=== PATIENT | female | born 1935 | race Caucasian/White ===

== ENCOUNTER 2018-05-27 09:55 | Emergency (ER) | payer OTHER, MEDICARE ==
[2018-05-27 10:19] VITALS: TEMP 98.9; BMI 21.6
[2018-05-27] MEDS ORDERED: ASPIRIN 81 MG CHEWABLE TABLETS PO ONE (10:20)
[2018-05-27] MEDS ORDERED: ASPIRIN 81 MG CHEWABLE TABLETS ONE ×2 (10:21→10:31)
--- NOTE | 2018-05-27 10:36 | PDOC ---
History of Present Illness - History of Present Illness Initial Comments: Dedra Siddiqui is an 83yo woman with a PMH of HTN, HLD, COPD, CAD s/p SC s/p stent (2014) who presents with left upper chest, left neck and jaw, and left upper arm pain since yesterday. She reports that she started feeling left jaw pain that traveled down her neck yesterday evening. Initially, it felt like a toothache, but she does not have any teeth. She additionally felt some chest tightness similar to her COPD, and she used her regular medications though without significant relief. The jaw/ neck pain started to travel down to include the shoulder and upper left arm as well. Ms Siddiqui tried to go to bed, but she was unable to sleep secondary to discomfort. This morning, she again felt some chest tightness and assumed it was her COPD. She used her maintenance and rescue inhalers without improvement. She additionally had continued left jaw, neck shoulder and arm pain with the addition of pleutitic left chest pain, 8/10 in intensity, as well. She tried to go to work as normal, but she decided that the discomfort was too severe and stopped at the hospital instead. Ms Siddiqui denies any significant shortness of breath, diaphoresis, nausea, vomiting, lightheadedness, or other symptoms along with the discomfort. She did have an SC previously but states that she never had any symptoms at that time. The SC was noted because she was getting preop testing for an unrelated procedure, but she was taken to the [facility] and had a stent placed. She does not note any angina or chest pain at baseline, just the tightness that she associates with her COPD. <Heather Winkler - Last Filed: 05/27/18 13:13> <Xander Deluca - Last Filed: 05/27/18 14:08> - General Chief Complaint: Chest Pain Stated Complaint: LEFT NECK/ARM PAIN Time Seen by Provider: 05/27/18 10:05 Attending Attestation - Resident Resident Name: Heather Winkler - ED Attending Attestation I have performed the following: I have examined & evaluated the patient, The case was reviewed & discussed with the resident, I agree w/resident's findings & plan, Exceptions are as noted - HPI HPI: Patient brought in by wheelchair from Dr Ramsey office because of presenting there with left sided neck , jaw and chest pain. Patient stated she had the above symptoms in the last 24 hours , mainly since this a.m. Pain is increased by deep inspiration. Seen immediately from arrival, EKG done n 3 minutes from arrival showed RSR with lateral and inferior wall negative T waves. Orders placed in, called PCP and her pressroom worker, obtained EKG for comparison ( wn) 05/27/18 12:18 - Physicial Exam PE: Alert , oriented x 3 , mild to moderate discomfort Aspirin, oxygen, morphine sulfate given with improvement of symptoms. Discussed with Dr Rob, cadiology customer relations representative She will arrive here to see patient. Discussed about potentially transfering to [facility] for Cardiac Cath which she refused. Patient cardiologst at [facility] contacted Patient wanted to go to [facility]. Her MD told her that she has /could go to [facility]. 05/27/18 12:29 - Critical Care Time Total Critical Care Time: 30 Critical Care Statement: The care of this patient involved high complexity decision making to prevent further life threatening deterioration of the patient 's condition and/or to evaluate & treat vital organ system(s) failure or risk of failure. - Medical Decision Making Patient with new EKG changes, positive symptoms and positive Troponin , requires admission to a cardiac cath hospital Dr Rosales at [facility] accepted patient for transfer ,via ALS ambulance 05/27/18 12:43 05/27/18 14:06 <Xander Deluca S - Last Filed: 05/27/18 14:08> Past History - Past Medical History Cardiac Disorders: Yes (SC) COPD: Yes HTN: Yes - Surgical History Appendectomy: Yes Cardiac Surgery: Yes (stent) - Suicide/Smoking/Psychosocial Hx Smoking Status: Yes Smoking History: Former smoker Years of Tobacco Use: 52 Have you smoked in the past 12 months: Yes Number of Cigarettes Smoked Daily: 10 If you are a former smoker, when did you quit?: 3 years ago Information on smoking cessation initiated: No Hx Alcohol Use: No Drug/Substance Use Hx: No <Heather Winkler - Last Filed: 05/27/18 13:13> <Xander Deluca - Last Filed: 05/27/18 14:08> - Past Medical History Allergies/Adverse Reactions: Allergies Allergy/AdvReac Type Severity Reaction Status Date / Time codeine Allergy Verified 05/27/18 10:01 Home Medications: Ambulatory Orders Vitamin B Complex 1 each PO DAILY capsule 08/20/13 Aspirin [Aspir 81] 81 mg PO DAILY 01/24/15 Cholecalciferol (Vitamin D3) [Vitamin D3] 2,000 unit PO DAILY capsule 04/26/15 Ascorbic Acid [Vitamin C] 500 mg PO DAILY tablet 02/06/16 Ferrous Sulfate 325 mg PO DAILY tablet 02/06/16 Magnesium Oxide 400 mg PO DAILY tablet 02/06/16 Amlodipine Besylate 2.5 mg PO DAILY 05/27/18 Diltiazem [Cardizem -] 60 mg PO ASDIR 05/27/18 LORazepam [Ativan] 1 mg PO PRN 05/27/18 Levalbuterol HCl [Xopenex] 1.25 mg IH ASDIR 05/27/18 Losartan Potassium 100 mg PO DAILY 05/27/18 Montelukast Na [Singulair -] 10 mg PO DAILY 05/27/18 Zolpidem Tartrate [Ambien] 10 mg PO HS PRN 05/27/18 Review of Systems - Review of Systems Comments:: General: No fevers, no chills, no weight or appetite change, no malaise HEENT: No changes in vision, no changes in hearing, no congestion, no sore throat CV: +chest pain. No palpitations, no LE edema Pulm: No SOB, no cough, no wheezing GI: No nausea or vomiting, no change in bowel habits, no melena : No frequency, no urgency, no dysuria Musc: No back pain, no joint swelling, no recent injury Skin: No rash, no lesions, no erythema Endo: No excessive thirst, no heat/cold intolerance Heme: No unusual bruising or bleeding, no swollen glands Neuro: No syncope, no numbness/tingling, no focal weakness Vasc: No claudication Psych: No recent change in mood, no SI or HI <Heather Winkler - Last Filed: 05/27/18 13:13> *Physical Exam - Vital Signs Last Vital Signs Temp Pulse Resp BP Pulse Ox 98.9 F 83 16 135/73 98 05/27/18 09:55 05/27/18 09:55 05/27/18 09:55 05/27/18 09:55 05/27/18 09:55 - Physical Exam Comments: General: Comfortable, no acute distress HEENT: PERRL, EOMI, MMM, voice normal, normal neck ROM, no LAD Cards: RRR, no murmur appreciated Pulm: Comfortable on room air, clear to auscultation bilaterally Abd: Soft, nontender, nondistended Ext: Atraumatic. No LE edema. ROM intact. Strength 5/5 and equal bilaterally Vasc: Extremities WWP. Skin: Normal color, no rashes or lesions Neuro: A&Ox3, CN grossly intact, normal speech, motor/sensory grossly intact and symmetric Psych: Mood appropriate to situation <Heather Winkler - Last Filed: 05/27/18 13:13> - Vital Signs Last Vital Signs Temp Pulse Resp BP Pulse Ox 98.9 F 96 H 16 130/56 L 100 05/27/18 09:55 05/27/18 11:30 05/27/18 11:30 05/27/18 11:30 05/27/18 11:30 <Cydney Delucaus S - Last Filed: 05/27/18 14:08> Moderate Sedation - Procedure Monitoring Vital Signs: Procedure Monitoring Vital Signs Temperature 98.9 F 05/27/18 09:55 Pulse Rate 83 05/27/18 09:55 Respiratory Rate 16 05/27/18 09:55 Blood Pressure 135/73 05/27/18 09:55 O2 Sat by Pulse Oximetry (%) 98 05/27/18 09:55 <Heather Winkler - Last Filed: 05/27/18 13:13> - Procedure Monitoring Vital Signs: Procedure Monitoring Vital Signs Temperature 98.9 F 05/27/18 09:55 Pulse Rate 96 H 05/27/18 11:30 Respiratory Rate 16 05/27/18 11:30 Blood Pressure 130/56 L 05/27/18 11:30 O2 Sat by Pulse Oximetry (%) 100 05/27/18 11:30 <KamilahaRemus S - Last Filed: 05/27/18 14:08> ED Treatment Course - LABORATORY CBC & Chemistry Diagram: 05/27/18 10:29 05/27/18 10:29 - RADIOLOGY Radiology Studies Ordered: Category Date Time Status CHEST PA & LAT [RAD] Stat Radiology 05/27/18 10:20 Stop Req <Heather Winkler - Last Filed: 05/27/18 13:13> - LABORATORY CBC & Chemistry Diagram: 05/27/18 10:29 05/27/18 10:29 - ADDITIONAL ORDERS Additional order review: Laboratory Results 05/27/18 05/27/18 05/27/18 10:29 10:29 10:29 PT with INR INR PTT (Actin FS) 27.1 Sodium 137 Potassium 3.9 Chloride 106 Carbon Dioxide 22 Anion Gap 9 BUN 31 H Creatinine 1.3 Creat Clearance w eGFR 38.93 Random Glucose 136 H Calcium 9.5 Magnesium 2.3 Total Bilirubin 0.8 AST 40 H ALT 28 Alkaline Phosphatase 97 Troponin I 1.50 H* Total Protein 7.4 Albumin 4.6 05/27/18 10:29 PT with INR 12.7 INR 1.14 PTT (Actin FS) Sodium Potassium Chloride Carbon Dioxide Anion Gap BUN Creatinine Creat Clearance w eGFR Random Glucose Calcium Magnesium Total Bilirubin AST ALT Alkaline Phosphatase Troponin I Total Protein Albumin 05/27/18 10:29 RBC 4.39 MCV 86.5 MCHC 33.1 RDW 12.7 MPV 9.1 Neutrophils % 82.3 Lymphocytes % 10.2 Monocytes % 7.1 Eosinophils % 0.4 Basophils % 0.0 - Medications Given in the ED: ED Medications Discontinued Medications Generic Name Dose Route Start Last Admin Trade Name Carl PRN Reason Stop Dose Admin Aspirin 162 mg 05/27/18 10:20 05/27/18 10:22 Asa - PO 05/27/18 10:21 162 mg ONCE ONE Administration Morphine Sulfate 1 mg 05/27/18 11:23 05/27/18 11:28 Morphine Injection - IVPUSH 05/27/18 11:24 1 mg ONCE ONE Administration <Xander Deluca S - Last Filed: 05/27/18 14:08> Medical Decision Making - Medical Decision Making 05/27/18 10:22 Dedra Siddiqui is an 83yo woman with a PMH of HTN, HLD, COPD, CAD s/p SC s/p stent (2014) who presents with left upper chest, left neck and jaw, and left upper arm pain that started last night and worsened today. She denies any associated symptoms of nausea/vomiting, diaphoresis, or lightheadedness, but she does report chest tightness starting last night. - Given patient's age, - Call placed to patient's pressroom worker, Dr Nuñez, for old EKG 05/27/18 10:46 - Prior EKG from 08/21/27 sent from pressroom worker. Shows NSR, no t-wave inversions noted. EKG changes today more likely new - Call placed to Dr Benitez (cardiology) 05/27/18 11:27 - Labs reviewed. Troponin elevated to 1.5 - Informed Ms Siddiqui of the results, and she states that she understands - Dr Deluca discussed with pressroom worker, who is working on transfer to a hospital with a [facility] 05/27/18 12:53 - Seen by Dr Rob in the ED. She agrees that Ms Siddiqui should be transferred and discussed this with Ms Siddiqui's regular pressroom worker - Patient's pressroom worker, Dr Nova, spoke with Dr Victor at [facility]. Ms Siddiqui will be accepted for transfer and possible cath - Discussed with patient, who is agreeable to this plan - heparin, plavix, statin ordered per Dr Rob - 1mg morphine 2x given for continued severe pleuritic pain 05/27/18 13:13 - Continued pain, now 7/10 from 8/10. Additional 1mg morphine ordered. May repeat if pain does not improve - Transportation set up to [facility], will be arriving at 14:30. Patient and daughter, now at bedside, informed <Heather Winkler - Last Filed: 05/27/18 13:13> *DC/Admit/Observation/Transfer - Transfer to Acute Care Facility Receiving Facility: [facility] Accepting Physician:: Dr Carlos Rosales <Heather Winkler - Last Filed: 05/27/18 13:13> - Transfer to Acute Care Facility Receiving Facility: [facility] <Xander Deluca - Last Filed: 05/27/18 14:08> Diagnosis at time of Disposition: NSTEMI (non-ST elevated myocardial infarction) - Discharge Dispostion Disposition: TRANSFER ACUTE CARE/OTHER HOSP - Referrals Referrals: Simon Ramsey MD [Primary Care Provider] - - Patient Instructions - Post Discharge Activity
[2018-05-27 10:47] LABS: EOS % 0.4 % (0-4.5); HEMOGLOBIN 12.6 GM/dl (10.7-15.3); LYMPH % 10.2 % (8-40); MCH 28.7 pg (25.7-33.7); MCHC 33.1 g/dl (32.0-36.0); MEAN CELL VOLUME 86.5 fl (80-96); MEAN PLT VOLUME 9.1 fl (7.5-11.1); MONO % 7.1 % (3.8-10.2); NEUT % 82.3 % (42.8-82.8); PLATELET COUNT 257 K/MM3 (134-434); RBC 4.39 M/mm3 (3.60-5.2); RDW 12.7 % (11.6-15.6); WHITE BLOOD COUNT 10.7 K/mm3 (4.0-10.8)
[2018-05-27 10:53] LABS: INR 1.14 (0.82-1.09); PROTHROMBIN TIME (PATIENT) 12.7 SEC (10.2-13.0)
[2018-05-27 10:54] LABS: ALBUMIN 4.6 g/dl (3.4-5.0); ALK PHOS 97 U/L (45-117); ANION GAP 9 MMOL/L (8-16); BILIRUBIN,TOTAL 0.8 mg/dl (0.2-1); BLOOD UREA NITROGEN 31 mg/dl (7-18); CALCIUM 9.5 mg/dl (8.5-10); CHLORIDE 106 mmol/L (98-107); CO2 22 mmol/L (21-32); CREATININE 1.3 mg/dl (0.55-1.3); GLUCOSE,RANDOM 136 mg/dl (74-106); MAGNESIUM 2.3 mg/dL (1.8-2.4); POTASSIUM 3.9 mmol/L (3.5-5.1); SGOT/AST 40 U/L (15-37); SGPT/ALT 28 U/L (13-61); SODIUM 137 mmol/L (136-145); TOT PROT 7.4 g/dl (6.4-8.2)
[2018-05-27] MEDS ORDERED: morphine CARPU-JECT 2 MG/1 ML DISP.SYRIN IVPUSH ONE ×4 (11:23→14:31)
[2018-05-27] MEDS ORDERED: morphine SULFATE 4 MG/ML VIAL ONE ×3 (11:24→13:14)
--- NOTE | 2018-05-27 12:18 | CON.CARD ---
Consult Consult Specialty:: Cardiology Referred by:: ER Reason for Consultation:: NSTEMI - History of Present Illness Chief Complaint: chest pain History of Present Illness: 83F h/o HTN, HLD, COPD, CAD s/p AK 2015 s/p stent p/w left chest, arm neck and jaw pain since last night, intermittent. No dyspnea, edema, orthopnea, PND, palps. Had reportedly AK in 2014, cath at [facility] s/p stent, prior interventionalist Dr. Rosales at [facility]. Sees Dr. Nuñez for cardiology. - History Source History Provided By: Patient - Alcohol/Substance Use Hx Alcohol Use: No - Smoking History Smoking history: Former smoker Have you smoked in the past 12 months: Yes Aproximately how many cigarettes per day: 10 If you are a former smoker, when did you quit?: 3 years ago Home Medications - Allergies Allergies/Adverse Reactions: Allergies Allergy/AdvReac Type Severity Reaction Status Date / Time codeine Allergy Verified 05/27/18 10:01 - Home Medications Home Medications: Ambulatory Orders Vitamin B Complex 1 each PO DAILY capsule 08/20/13 Aspirin [Aspir 81] 81 mg PO DAILY 01/24/15 Cholecalciferol (Vitamin D3) [Vitamin D3] 2,000 unit PO DAILY capsule 04/26/15 Ascorbic Acid [Vitamin C] 500 mg PO DAILY tablet 02/06/16 Ferrous Sulfate 325 mg PO DAILY tablet 02/06/16 Magnesium Oxide 400 mg PO DAILY tablet 02/06/16 Amlodipine Besylate 2.5 mg PO DAILY 05/27/18 Diltiazem [Cardizem -] 60 mg PO ASDIR 05/27/18 LORazepam [Ativan] 1 mg PO PRN 05/27/18 Levalbuterol HCl [Xopenex] 1.25 mg IH ASDIR 05/27/18 Losartan Potassium 100 mg PO DAILY 05/27/18 Montelukast Na [Singulair -] 10 mg PO DAILY 05/27/18 Zolpidem Tartrate [Ambien] 10 mg PO HS PRN 05/27/18 Family Disease History - Family Disease History Family History: Unremarkable Review of Systems - Review of Systems Constitutional: reports: No Symptoms Eyes: reports: No Symptoms HENT: reports: No Symptoms Neck: reports: No Symptoms Cardiovascular: reports: No Symptoms Respiratory: reports: No Symptoms Gastrointestinal: reports: No Symptoms Genitourinary: reports: No Symptoms Musculoskeletal: reports: No Symptoms Integumentary: reports: No Symptoms Neurological: reports: No Symptoms Endocrine: reports: No Symptoms Hematology/Lymphatic: reports: No Symptoms Psychiatric: reports: No Symptoms Vital Signs: Vital Signs Temperature 98.9 F 05/27/18 09:55 Pulse Rate 96 H 05/27/18 11:30 Respiratory Rate 16 05/27/18 11:30 Blood Pressure 130/56 L 05/27/18 11:30 O2 Sat by Pulse Oximetry (%) 100 05/27/18 11:30 Constitutional: Yes: No Distress, Calm Eyes: Yes: Conjunctiva Clear, EOM Intact HENT: Yes: Atraumatic, Normocephalic Neck: Yes: Supple, Trachea Midline Respiratory: Yes: Regular, CTA Bilaterally Gastrointestinal: Yes: Normal Bowel Sounds, Soft Cardiovascular: Yes: Regular Rate and Rhythm JVD: No Carotid Bruit: No PMI: Non-Displaced Heart Sounds: Yes: S1, S2 Musculoskeletal: No: Back Pain Extremities: No: Cold Peripheral Pulses WNL: Yes Peripheral Pulses: 2+ Left Carotid, 2+ Right Carotid, 2+ Left Doralis Pedis, 2+ Right Dorsalis Pedis Integumentary: No: Jaundice Neurological: Yes: Alert, Oriented Psychiatric: No: Agitated - Other Data Labs, Other Data: CBC, BMP 05/27/18 10:29 05/27/18 10:29 INR, PTT INR 1.14 (0.82-1.09) 05/27/18 10:29 Troponin, BNP 05/27/18 10:29 Troponin I 1.50 H* Troponin, BNP 05/27/18 10:29 Troponin I 1.50 H* Assessment/Plan EKG: sinus, inferolateral TWI changed from prior EKG 08/20/17 83F h/o HTN, HLD, COPD, CAD s/p AK 2014 s/p stent p/w left chest, arm neck and jaw pain, NSTEMI NSTEMI - elevated trop, EKG changes with symptoms concerning for ACS - received aspirin; start heparin gtt, plavix, statin - plan for transfer for cardiac catheterization to [facility] per request of patient and Dr Nuñez HTN - stable, continue home meds HLD - cont statin COPD - stable
[2018-05-27] MEDS ORDERED: CLOPIDOGREL BISULFATE 300 MG TABLET PO ONE (12:25)
[2018-05-27] MEDS ORDERED: HEPARIN NA (PORCINE) 5,000 UNITS/ML 1ML VIAL IVPUSH PRN ×2 (12:26)
[2018-05-27] MEDS ORDERED: HEPARIN - 25,000 UNIT in SODIUM CHLORIDE 495 ML IV SCH (12:30)
[2018-05-27] MEDS ORDERED: ATORVASTATIN CA 80 MG TABLET (FP) PO SCH (12:30)
[2018-05-27] MEDS ORDERED: HEPARIN INFUSION - 25,000 UNITS/500 ML INFUS.BAG IVPB ONE (12:31)
[2018-05-27] MEDS ORDERED: ATORVASTATIN CA 80 MG TABLET (FP) ONE (12:45)
[2018-05-27 14:38] VITALS: BP 109/61; PULSE 99
[2018-05-28] MEDS ORDERED: CLOPIDOGREL BISULFATE 75 MG TABLET (FP) PO SCH (10:00)
--- NOTE | 2018-05-28 14:54 | EKG ---
Test Reason : Blood Pressure : / mmHG Vent. Rate : 095 BPM Atrial Rate : 095 BPM P-R Int : 164 ms QRS Dur : 082 ms QT Int : 410 ms P-R-T Axes : 056 056 195 degrees QTc Int : 515 ms NORMAL SINUS RHYTHM WITH SINUS ARRHYTHMIA ANTERIOR INFARCT , AGE UNDETERMINED T WAVE ABNORMALITY, CONSIDER INFEROLATERAL ISCHEMIA PROLONGED QT ABNORMAL ECG NO PREVIOUS ECGS AVAILABLE Confirmed by ADAL POPE, KINGA ([id number]) on 05/28/2018 2:53:47 PM Referred By: ADEEL GONZALEZ Confirmed By:KINGA GALEAS MD
== END 2018-05-27 14:38 | disposition short-term general hospital (02) ==
LOC: SUPCPDRO 09:55 → FER 09:55
PROC: 3E033GC Introduction of Other Therapeutic Substance into Peripheral Vein, Percutaneous Approach (ICD-10-PCS; principal; 2018-05-27)
PROC: 3E033NZ Introduction of Analgesics, Hypnotics, Sedatives into Peripheral Vein, Percutaneous Approach (ICD-10-PCS; 2018-05-27)
DX: I21.4 Non-ST elevation (NSTEMI) myocardial infarction (principal); I10 Essential (primary) hypertension; E78.5 Hyperlipidemia, unspecified; J44.9 Chronic obstructive pulmonary disease, unspecified; I25.2 Old myocardial infarction
CPT/HCPCS: 36415; 71045-TC-FY; 80053; 83735; 84484; 85025; 85610; 85730; 93005; 96365; 96375; 96376; 99285-25; J1644